=== PATIENT | male | born 1955 | race Caucasian/White ===

== ENCOUNTER 2018-10-28 00:44 | Emergency (ER) | payer OTHER ==
[~2018-10-28] VITALS: Ht 182.9 cm; Wt 115.7 kg
[2018-10-28] MEDS ORDERED: KETOROLAC TROMETHAMINE 30 MG/ML VIAL IM STA (01:09)
--- NOTE | 2018-10-28 01:59 | Diagnostic Imaging Report ---
Lumbar spine two views CPT code: 75667 Indication: 5 days of back pain Technique: A.P. and lateral views of the lumbar spine obtained without comparison. Findings: There are five non rib bearing vertebral bodies. Alignment is maintained on the AP and lateral views. The transverse processes are intact. Mild height loss of all vertebral bodies without wedging.. There is mild disc space narrowing at L5-S1. Prominent anterior osteophytes from T12 to L4 and small anterior osteophytes at L5 and S1. No abnormalities of the sacroiliac joints. The sacrum is normal. The spinous processes are normally aligned. There is no evidence of subluxation. The right iliac wing has a curvilinear cystic lesion with sclerotic margins measuring 6 x 7 cm. V there is a narrow zone of transition. The visualized hips are intact. The bowel gas pattern is unremarkable. IMPRESSION: 1. Diffuse flowing anterior osteophytes suggestive of DISH. Mild diffuse height loss of the vertebral bodies consistent with spondylosis. No acute compression deformity or listhesis. 2. 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 Recommend 6-12 month follow-up with pelvis x-rays to confirm stability. Signed by: Dr. Jerald Fernández MD on 10/28/2018 1:55 AM
== END 2018-10-28 02:25 | disposition home or self-care (01) ==
LOC: FSED 00:44
DX: M54.5 Low back pain (principal); R80.9 Proteinuria, unspecified; E11.65 Type 2 diabetes mellitus with hyperglycemia; M47.896 Other spondylosis, lumbar region; I10 Essential (primary) hypertension
CPT/HCPCS: 72100; 99283